=== PATIENT | female | born 1990 | race Caucasian/White ===

== ENCOUNTER 2018-09-09 05:43 | Emergency (ER) | payer MEDICAID, OTHER ==
[2018-09-09 05:43] VITALS: BMI 44.0
[2018-09-09 05:53] VITALS: O2SAT 100
--- NOTE | 2018-09-09 06:05 | C.PDOC ---
History Of Present Illness 28 y/o female comes in complaining of LUQ pain. States she woke up this morning and felt pain and SOB. Describes the pain as sharp and stabbing discomfort. Denies nausea, vomiting, fever, chills, or chest pain. Patient is speaking c omplete sentences. States she has her period now. Also states she had similar symptoms about a week ago but subsided and resolved on its own. Time Seen by Provider: 09/09/18 06:05 Chief Complaint (Nursing): Shortness Of Breath History Per: Patient History/Exam Limitations: no limitations Onset/Duration Of Symptoms: Hrs Current Symptoms Are (Timing): Still Present Severity: Moderate Pain Scale Rating Of: 4 Recent travel outside of the [place]: No Past Medical History Reviewed: Historical Data, Nursing Documentation, Vital Signs Vital Signs: Last Vital Signs Temp 98 F 09/09/18 05:50 Pulse 106 H 09/09/18 05:50 Resp 2 L 09/09/18 05:54 BP 138/92 H 09/09/18 05:50 Pulse Ox 100 09/09/18 05:54 Primary Care Provider: FAMILY PROVIDER,NO - Medical History PMH: Kidney Stones Surgical History: - [facility] Procedures MONITORING NOS (04/25/14) INJECT/INFUSE NEC (11/22/13) LOW CERVICAL (04/25/14) Family History: States: No Known Family Hx - Social History Hx Tobacco Use: No Hx Alcohol Use: Yes Hx Substance Use: No - Immunization History Hx Tetanus Toxoid Vaccination: No (unk) Hx Influenza Vaccination: No Hx Pneumococcal Vaccination: No Review Of Systems Except As Marked, All Systems Reviewed And Found Negative. Constitutional: Negative for: Fever, Chills Respiratory: Positive for: Shortness of Breath. Negative for: Cough Gastrointestinal: Positive for: Abdominal Pain (LUQ). Negative for: Nausea, Vomiting Neurological: Negative for: Weakness, Numbness Physical Exam - Physical Exam Appears: Non-toxic, No Acute Distress Skin: Warm, Dry Head: Normacephalic Eye(s): bilateral: Normal Inspection Oral Mucosa: Moist Neck: Trachea Midline, Supple Chest: Symmetrical, No Tenderness Cardiovascular: Rhythm Regular Respiratory: No Rales, No Rhonchi, No Wheezing Gastrointestinal/Abdominal: Soft, Tenderness (LUQ), No Distention, No Guarding, No Rebound Extremity: Bilateral: Normal Color And Temperature Neurological/Psych: Oriented x3 ED Course And Treatment - Laboratory Results Result Diagrams: 09/09/18 06:22 09/09/18 06:22 ECG: Interpreted By Me, Viewed By Me ECG Rhythm: Sinus Rhythm (93), Nonspecific Changes O2 Sat by Pulse Oximetry: 100 (RA) Pulse Ox Interpretation: Normal Progress Note: Plan: Labs, UA. Disposition Counseled Patient/Family Regarding: Studies Performed, Diagnosis - Disposition Disposition Time: 06:05 Condition: FAIR Forms: [employer] (Liberian) - Clinical Impression Clinical Impression: Abdominal pain - Scribe Statement The provider has reviewed the documentation as recorded by the [facility] Provider Attestation: All medical record entries made by the Scribe were at my direction and personally dictated by me. I have reviewed the chart and agree that the record accurately reflects my personal performance of the history, physical exam, medical decision making, and the department course for this patient. I have also personally directed, reviewed, and agree with the discharge instructions and disposition. Physician Patient Turnover Patient Signed Over To: Amber Cates Handoff Comments: pending ct scan , re-eval and dispo
[2018-09-09 06:30] LABS: BASO % 0.5 % (0.0-2.0); EOS # 0.3 K/uL (0.0-0.7); HEMOGLOBIN 12.6 g/dL (11.0-16.0); LYMPH # 1.8 K/uL (1.0-4.3); LYMPH % 24.1 % (20.0-40.0); MEAN CELL VOLUME 89.9 fL (81.0-99.0); MEAN CORPUSCULAR HGB CONC 33.4 g/dL (33.0-37.0); MEAN PLATELET VOLUME 8.3 fL (7.2-11.7); MONO # 0.6 K/uL (0.0-0.8); MONO % 8.3 % (0.0-10.0); NEUT # 4.6 K/uL (1.8-7.0); NEUT % 63.1 % (50.0-75.0); RBC 4.21 Mil/uL (3.80-5.20); RED CELL DISTRIBUTION WIDTH 14.3 % (11.5-14.5); WHITE BLOOD COUNT 7.4 K/uL (4.8-10.8)
[2018-09-09 06:34] LABS: SQUAMOUS EPITHIAL 1 /hpf (0-5); URINE BACTERIA RARE (<OCC); URINE BILIRUBIN NEGATIVE (NEGATIVE); URINE BLOOD 3+ (NEGATIVE); URINE CLARITY Clear (Clear); URINE COLOR Red (YELLOW); URINE GLUCOSE (UA) NORMAL (Normal); URINE LEUKOCYTE ESTERASE NEG Leu/uL (Negative); URINE PROTEIN 1+ mg/dL (NEGATIVE); URINE UROBILINOGEN NORMAL mg/dL (0.2-1.0)
[2018-09-09 06:35] LABS: HCG,QUALITATIVE URINE NEGATIVE (NEGATIVE)
[2018-09-09 06:37] LABS: ALB/GLOB RATIO 1.2 (1.0-2.1); ALBUMIN 4.3 g/dL (3.5-5.0); ALT/SGPT 14 U/L (9-52); AST/SGOT 20 U/L (14-36); BLOOD UREA NITROGEN 15 mg/dL (7-17); GFR NON-AFRICAN AMERICAN > 60; LIPASE 101 U/L (23-300)
[2018-09-09 06:58] VITALS: RESP 18
[2018-09-09] MEDS ORDERED: Iodixanol 320 MG/ML 100 ML BOTTLE IV ONE (07:00)
--- NOTE | 2018-09-09 08:57 | CT ---
Date of service: 09/09/2018 PROCEDURE: CT Abdomen and Pelvis with contrast HISTORY: luq pain COMPARISON: None. TECHNIQUE: Contrast dose: 100 mL of Visipaque 320 intravenously. Axial and reformatted coronal and sagittal CT images of the abdomen and pelvis were obtained after IV contrast administration. Radiation dose: Total exam DLP = 1093.77 mGy-cm. This CT exam was performed using one or more of the following dose reduction techniques: Automated exposure control, adjustment of the mA and/or kV according to patient size, and/or use of iterative reconstruction technique. FINDINGS: LOWER THORAX: Unremarkable. LIVER: Unremarkable. No gross lesion or ductal dilatation. GALLBLADDER AND BILE DUCTS: Unremarkable. PANCREAS: Unremarkable. No gross lesion or ductal dilatation. SPLEEN: Unremarkable. ADRENALS: Unremarkable. No mass. KIDNEYS AND URETERS: Unremarkable. No hydronephrosis. No solid mass. VASCULATURE: Unremarkable. No aortic aneurysm. No aortic atherosclerotic calcification or mural plaque present. BOWEL: Mild constipation.. No obstruction. No gross mural thickening. APPENDIX: Normal appendix. PERITONEUM: Unremarkable. No free fluid. No free air. LYMPH NODES: Unremarkable. No enlarged lymph nodes. BLADDER: Unremarkable. REPRODUCTIVE: Unremarkable. BONES: No acute fracture. OTHER FINDINGS: None. IMPRESSION: Mild constipation. Otherwise unremarkable contrast enhanced CT of the abdomen and pelvis.
[2018-09-09 09:05] VITALS: BP 126/81; PULSE 81; TEMP 98.8
--- NOTE | 2018-09-09 19:43 | RAD ---
Date of service: 09/09/2018 HISTORY: cp COMPARISON: No prior. TECHNIQUE: Chest PA and lateral views FINDINGS: LUNGS: No active pulmonary disease. PLEURA: No significant pleural effusion identified. No pneumothorax apparent. CARDIOVASCULAR: No aortic atherosclerotic calcification present. Normal cardiac size. No pulmonary vascular congestion. OSSEOUS STRUCTURES: No significant abnormalities. VISUALIZED UPPER ABDOMEN: Normal. OTHER FINDINGS: None. IMPRESSION: No active disease.
--- NOTE | 2018-09-13 00:10 | CARD ---
APPROVED REPORT Date of service: 09/09/2018 EKG Measurement Heart [id number] <Conclusion> Normal sinus rhythm Normal ECG
== END 2018-09-09 09:05 | disposition home or self-care (01) ==
LOC: C.ER 05:43
DX: R10.12 Left upper quadrant pain (principal); R07.9 Chest pain, unspecified
CPT/HCPCS: 71046; 74177; 80053; 81001; 83690; 84703; 85025; 93005; 99285; Q9967